=== PATIENT | female | born 1995 | race Two or more races ===

== ENCOUNTER 2019-11-27 20:02 | Emergency (ER) | payer BC ==
--- NOTE | 2019-11-27 20:48 | ED ---
Complex/Multi-Sys Presentation - HPI Summary HPI Summary: Patient is a 24 y/o F presenting to [facility] with chief complaint of heart palpitations. She states that she was playing video games this evening, 11/27/19 , when she experienced onset of a "vibrating" sensation at her back. Patient claims that she has been having this Sx intermittently for the past few days. Patient additionally had onset of palpitations this evening. Palpitations are characterized as fast. She states that she had been sitting down for an hour but measured her pulse to be 120 BPM. Patient claims that her baseline HR is around 100 BPM. Patient stood up and noted increase of her HR to 162 BPM. She notes that she has had similar palpitations in the past, but notes that her pulse was much faster today compared to previous episodes and that this is the first time that she has had both of these Sx together. She states that she was nauseous for a minute and was also breathing shallowly. Patient called her father, his girlfriend, who is an RN, advised the patient to go to ED to be evaluated for her elevated HR. She also notes that she was feeling constipated and had right-sided abdominal pain yesterday, these Sx have since resolved. Patient states that she has Hx of vertigo and orthostatic HTN. Patient states that she had been prescribed midodrine but has not taken this medication in over a year as she has not experienced any relief in Sx with this medication. She also states that she experiences daily shooting nerve pain. Patient claims Hx of celiac's disease and "cognitive impairment" that she characterizes as "brain fog", but notes that she has not actually been diagnosed with either by a medical provider. Hx of ovarian cyst at age 13 noted. PSHx denied. FMHx of rheumatoid arthritis, fibromyalgia, diverticulitis, cardiac disease, and diabetes noted. She states that she uses marijuana occasionally but denies alcohol consumption. Patient takes vitamin D and iron supplement as well as Flonase and loratadine. Home medications and allergies are reviewed. - History Of Current Complaint Chief Complaint: EDDysrhythmPalp Time Seen by Provider: 11/27/19 20:39 Hx Obtained From: Patient Onset/Duration: Still Present, Resolved - abdominal pain, nausea, and constipation Timing: Hours Severity Currently: None Location: Pain At: - right abdomen, since resolved Associated Signs And Symptoms: Positive: Nausea - since resolved, Abdominal Pain , Other - vibrating" sensation at her back, palpiations, nausea, breathing shallowly endorsed; since resolved abdominal pain, nausea, and constipation - Allergies/Home Medications Allergies/Adverse Reactions: Allergies Allergy/AdvReac Type Severity Reaction Status Date / Time celery Allergy Swelling Verified 12/16/18 14:10 Of Face,Lips,& Throat molasses Allergy FOOD Verified 12/16/18 14:10 POISONING SYMPTOMS SUGAR CANE PRODUCT Allergy FOOD Uncoded 12/16/18 14:10 POISONING SYMPTOMS PMH/Surg Hx/FS Hx/Imm Hx Endocrine/Hematology History: Denies: Hx Diabetes Cardiovascular History: Reports: Other Cardiovascular Problems/Disorders - orthostatic HTN Denies: Hx Pacemaker/ICD History: Denies: Hx Renal Disease Sensory History: Denies: Hx Hearing Aid Neurological History: Reports: Other Neuro Impairments/Disorders - vertigo Psychiatric History: Reports: Hx Panic Disorder - GENERAL ANXIETY Infectious Disease History: No Infectious Disease History: Denies: Traveled Outside the [place] in Last 30 Days - Family History Known Family History: Positive: Cardiac Disease, Diabetes, Other - rheumatoid arthritis, fibromyalgia, diverticulitis - Social History Alcohol Use: None Substance Use Type: Reports: Marijuana Substance Use Comment - Amount & Last Used: ocassional Smoking Status (MU): Never Smoked Tobacco - Additional Comments History Additional Comments: PMHx of orthostatic HTN, vertigo, and ovarian cyst FMHx of rheumatoid arthritis, fibromyalgia, diverticulitis, cardiac disease, and diabetes Review of Systems Positive: Palpitations Respiratory: Other - positive - breathing shallowly Gastrointestinal: Other - positive - constipation, since resolved Positive: Abdominal Pain - since resolved , Nausea - since resolved Musculoskeletal: Other - positive - "vibrating" sensation at her back All Other Systems Reviewed And Are Negative: Yes Physical Exam - Summary Physical Exam Summary: General: Well-developed, Thin-appearing female. No acute distress. HEENT: Normocephalic, Atraumatic. Eyes: Conjuctiva normal, PERRL. Oropharynx: Clear, mucous membranes moist, (-) exudates. Neck: Soft, FROM, (-) lymphadenopathy, (-) thyromegaly, (-) JVD. Cardiovascular: Normal sinus rhythm, (-) murmur. Lungs: Clear to auscultation bilaterally (-) wheezes, (-) rales, (-) rhonchi. Abdomen: Soft, non-tender, non-distended, (-) organomegaly, normal bowel sounds. Back: (-) CVA tenderness Extremities: No edema. Skin: Warm, dry, (-) rash. Neuro: Alert and oriented x3, no focal deficits. Psychiatric: Mildly-anxious appearing. Triage Information Reviewed: Yes Vital Signs On Initial Exam: Initial Vitals Temp Pulse Resp BP Pulse Ox 97.5 F 140 22 141/100 100 11/27/19 20:04 11/27/19 20:04 11/27/19 20:04 11/27/19 20:04 11/27/19 20:04 Vital Signs Reviewed: Yes Procedures - Sedation Patient Received Moderate/Deep Sedation with Procedure: No Diagnostics - Vital Signs Vital Signs Temp Pulse Resp BP Pulse Ox 11/27/19 20:04 97.5 F 140 22 141/100 100 - Laboratory Result Diagrams: 11/27/19 20:59 11/27/19 20:59 Lab Statement: Any lab studies that have been ordered have been reviewed, and results considered in the medical decision making process. - EKG 2008 Cardiac Rate: Tachycardia - rate of 107 BPM EKG Rhythm: Sinus Tachycardia Summary of EKG Findings: EKG at 2007 reveals normal sinus rhythm with rate of 107 BPM, no acute changes, no ischemic changes. This EKG was reviewed and interpreted by Dr. Pryor. Re-Evaluation - Re-Evaluation First Eval Re-Evaluation Time: 22:59 Comment: Workup was discussed, patient to be discharged to home. Complex Multi-Symp Course/Dx Course Of Treatment: 24 year old female presents with palpitations and tachycardia. patient has known orthostatic hypotension. had a positive tilt table test. no caffeine. no alcohol. marijuana only drug. no significant findings on exam or workup. patient discharged to home. advised plenty of fluids. follow up with PCP, follow up sooner for any worsening symptoms - Diagnoses Provider Diagnoses: Palpitations, Tachycardia Discharge ED - Sign-Out/Discharge Documenting (check all that apply): Patient Departure - discharge - Discharge Plan Condition: Stable Disposition: HOME Patient Education Materials: Heart Palpitations (ED), Tachycardia (ED) Referrals: Abilio Ceja NP [Primary Care Provider] - 3 Days Additional Instructions: PLEASE RETURN TO ED FOR ANY NEW OR WORSENING SYMPTOMS. PLEASE FOLLOW UP WITH YOUR PRIMARY CARE PHYSICIAN WITHIN THREE DAYS. - Billing Disposition and Condition Condition: STABLE Disposition: Home - Attestation Statements Document Initiated by Kalee: Yes Documenting Scribe: CARRIE FRYE Provider For Whom Kalee is Documenting (Include Credential): RIGOBERTO PRYOR MD Scribe Attestation: ICARRIE, scribed for RIGOBERTO PRYOR MD on 11/28/19 at 0012. Scribe Documentation Reviewed: Yes Provider Attestation: The documentation as recorded by the CARRIE taylor accurately reflects the service I personally performed and the decisions made by me, RIGOBERTO PRYOR MD Status of Scribe Document: Viewed
[2019-11-27 21:09] LABS: ABS Eosinophils 0.1 10^3/ul (0-0.6); ABS Lymphocytes 2.4 10^3/ul (1.0-4.8); ABS Monocytes 0.9 10^3/ul (0-0.8); ABS Neutrophils 4.8 10^3/ul (1.5-7.7); Eosinophil % 1.2 %; Hematocrit 42 % (35-47); Hemoglobin 14.4 g/dL (12.0-16.0); Lymphocyte % 29.5 %; Mean Corpuscular HGB Conc 34 g/dL (31-36); Mean Corpuscular Hemoglobin 30 pg (27-31); Mean Corpuscular Volume 86 fL (80-97); Mean Platelet Volume 8.8 fL (7.4-10.4); Nucleated Red Blood Cells % 0.1; Platelet Count 269 10^3/uL (150-450); Red Blood Count 4.88 10^6 /uL (3.70-4.87); Red Cell Distribution Width 13 % (10-15); White Blood Count 8.3 10^3/uL (3.5-10.8)
[2019-11-27 21:24] LABS: Urine Appearance Cloudy; Urine Bilirubin Negative (Negative); Urine Blood Negative (Negative); Urine Color Yellow; Urine Glucose Negative (Negative); Urine Ketones Negative (Negative); Urine Nitrite Negative (Negative); Urine Protein Negative (Negative); Urine Urobilinogen Negative (Negative)
[2019-11-27 21:26] LABS: ALT 14 U/L (7-52); AST 14 U/L (13-39); Albumin 4.6 g/dL (3.2-5.2); Albumin/Globulin Ratio 1.6 (1-3); Alkaline Phosphatase 63 U/L (34-104); Anion Gap 6 mmol/L (2-11); BUN/Creatinine Ratio 10.4 (8-20); Blood Urea Nitrogen 7 mg/dL (6-24); C Reactive Protein < 1.00 mg/L (<8.01); CO2 Carbon Dioxide 28 mmol/L (22-32); Calcium 9.3 mg/dL (8.6-10.3); Chloride 106 mmol/L (101-111); EGFR Non-African American 109.1 (>60); Globulin 2.8 g/dL (2-4); Glucose 99 mg/dL (70-100); Magnesium 1.9 mg/dL (1.9-2.7); Potassium 3.7 mmol/L (3.5-5.0); Sodium 140 mmol/L (135-145); Total Protein 7.4 g/dL (6.4-8.9)
[2019-11-27 21:33] LABS: HCG Pregnancy < 0.60 mIU/mL
[2019-11-27 21:37] LABS: INR 1.01 (0.82-1.09)
[2019-11-27 21:40] LABS: Alcohol < 10 mg/dL (<10)
[2019-11-27 21:41] LABS: Urine Benzodiazepine Screen None Detected (None Detect); Urine Opiates Screen None Detected (None Detect)
[2019-11-27 21:55] LABS: TSH (Thyroid Stimulating Horm) 2.66 mcIU/mL (0.34-5.60)
[2019-11-27 23:15] VITALS: BP 131/79
== END 2019-11-27 23:10 | disposition home or self-care (01) ==
LOC: ED 20:02
DX: R00.2 Palpitations (principal); R00.0 Tachycardia, unspecified; I95.1 Orthostatic hypotension; Z91.018 Allergy to other foods
CPT/HCPCS: 36415; 80053; 80307; 80320; 81003; 83605; 83735; 84443; 84484; 84702; 85025; 85610; 86140; 93005; 99283; G0480